=== PATIENT | female | born 1985 | race Caucasian/White ===

== ENCOUNTER → 2021-05-05 10:12 | Outpatient (NON) | payer OTHER, SELFPAY ==
[2020-02-15 20:08] LABS: SARS-CoV-2 RNA PCR Negative
== END | disposition home or self-care (01) ==
PROVIDERS: Visit Provider Otolaryngology Plastic Surgery within the Head & Neck
DX: Z20.828 Contact with and (suspected) exposure to other viral communicable diseases (principal)
CPT/HCPCS: 87635; C9803; U0003

== ENCOUNTER → 2021-05-29 02:41 | Outpatient (CLI) | payer OTHER, SELFPAY ==
[2021-05-29 20:34] LABS: SARS-CoV-2 RNA PCR Negative
== END ==
PROVIDERS: Visit Provider Otolaryngology Plastic Surgery within the Head & Neck
DX: R68.89 Other general symptoms and signs (principal); Z20.822 Contact with and (suspected) exposure to COVID-19
CPT/HCPCS: C9803; U0003; U0005